=== PATIENT | female | born 1990 | race Two or more races ===

== ENCOUNTER 2023-06-23 07:30 | Inpatient (IN) | payer OTHER ==
[2023-06-30 06:40] VITALS: BMI 28.1
[2023-06-30] MEDS ORDERED: Ondansetron PF 4 MG/2 ML Vial IVP PRN ×2 (06:40→11:50)
[2023-06-30] MEDS ORDERED: Promethazine HCl 25 MG/ML VIAL IM PRN ×2 (06:40→11:50)
[2023-06-30] MEDS ORDERED: Oxytocin 30 units/NS 500 ML 500 ML IV SCH ×3 (06:40)
[2023-06-30] MEDS ORDERED: Lidocaine 1% (PF) 30 ML VIAL SC PRN (06:40)
[2023-06-30] MEDS ORDERED: hydrALAZINE 20 MG/ML VIAL SLOW IVP PRN (06:40)
[2023-06-30] MEDS ORDERED: fentaNYL 50 mcg/mL 1 mL Vial SLOW IVP PRN (06:40)
[2023-06-30] MEDS ORDERED: Misoprostol 100 MCG TAB VAG SCH ×2 (06:40)
[2023-06-30] MEDS ORDERED: HYDROcodone/Acetaminophen 5/325 mg Tablet PO PRN ×2 (06:40)
[2023-06-30] MEDS ORDERED: Lactated Ringer's 1,000 ML IV SCH (06:40)
[2023-06-30] MEDS ORDERED: Ibuprofen 800 MG TAB PO PRN (06:40)
[2023-06-30 06:56] LABS: Hematocrit 36.2 % (34.9-44.5); Hemoglobin 12.4 g/dL (12.0-15.5); Mean Corpuscular HGB CONC 34.3 g/dL (32.0-36.0); Mean Corpuscular Hemoglobin 31.3 pg (27.0-33.0); Mean Corpuscular Volume 91.4 fl (81.6-98.3); Platelet Count 196 10x3/uL (150-450); RBC Distribution Width 13.1 % (11.5-14.5); Red Blood Cell (RBC) Count 3.96 10x6/uL (3.90-5.03); White Blood Cell (WBC) Count 8.1 10x3/uL (3.5-10.5)
[2023-06-30 07:23] LABS: Syphilis Antibody Nonreactive (Nonreactive); Syphilis Antibody Index 0.04 S/CO (<1.00 Non-Reactive)
[2023-06-30 07:24] LABS: HBSAg Index 0.12 S/CO (0-0.99); Hep B Surf Ag - L&D Non-Reactive S/CO (NonReactive)
[2023-06-30] MEDS ORDERED: fentaNYL/Ropivacaine Epidural 100 ML ONE (10:55)
[2023-06-30] MEDS ORDERED: Naloxone HCl 0.4 mg/ml Vial IVP PRN ×2 (11:50)
[2023-06-30] MEDS ORDERED: Lactated Ringer's 500 ML IV PRN (11:50)
[2023-06-30] MEDS ORDERED: ePHEDrine Sulfate 50 MG/10 ML VIAL SLOW IVP PRN (11:50)
[2023-06-30] MEDS ORDERED: Moisturizing Cream (Eucerin) 113 GM JAR TOP PRN (11:50)
[2023-06-30] MEDS ORDERED: Acetaminophen 325 MG TAB PO PRN (11:50)
[2023-06-30] MEDS ORDERED: diphenhydrAMINE 50 MG/ML VIAL IVP PRN (11:50)
[2023-06-30] MEDS ORDERED: fentaNYL 2 mcg/Ropivacaine 0.2% Epidural 100 ML CADD EPIDURAL SCH (12:00)
[2023-06-30] MEDS ORDERED: Communication Order-Pharmacy FS SCH (12:00)
[2023-06-30] MEDS ORDERED: Bupivacaine 0.25% HCL 30 ML VIAL ONE (14:50)
[2023-06-30] MEDS ORDERED: ePHEDrine Sulfate 50 MG/10 ML VIAL ONE (14:50)
[2023-06-30] MEDS ORDERED: Lidocaine 2% MPF 10 ML AMP (For Epidural Use) ONE (14:50)
[2023-06-30] MEDS ORDERED: Bupivacaine PF 0.5% 30 ML VIAL ONE (14:50)
[2023-06-30] MEDS ORDERED: Penicillin G Potassium 5 MILL.UNITS VIAL ONE (23:51)
[2023-07-01] MEDS ORDERED: Penicillin G Potassium 5 MILL.UNITS in Sodium Chloride 0.9% 100 ML IVPB SCH (00:15)
[2023-07-01] MEDS ORDERED: fentaNYL 50 mcg/mL 1 mL Vial ONE ×3 (03:58→06:42)
[2023-07-01] MEDS: Penicillin G 2.5 MILL.units 2.5 MILL.UNITS in Premix Bag 1 BAG IVPB SCH ×2 (04:30→09:50)
[2023-07-01] MEDS ORDERED: CEFAZOLIN 2 GM VIAL ONE (05:13)
[2023-07-01] MEDS ORDERED: Azithromycin 500 MG VIAL ONE (05:15)
[2023-07-01] MEDS ORDERED: Misoprostol 200 MCG TAB ONE (05:32)
[2023-07-01] MEDS ORDERED: Carboprost 250 MCG/ML AMP ONE (05:33)
[2023-07-01] MEDS ORDERED: Oxytocin 10 UNITS/ML VIAL ONE (05:34)
[2023-07-01] MEDS ORDERED: Ondansetron PF 4 MG/2 ML Vial ONE (05:34)
[2023-07-01] MEDS ORDERED: PHENYLEPHRINE-NS 100 MCG/ML 10 ML SYRINGE ONE (05:34)
[2023-07-01] MEDS ORDERED: Methylergonovine 0.2 MG/ML VIAL ONE (05:34)
[2023-07-01] MEDS ORDERED: Morphine PF 10 MG/10 ML VIAL ONE ×2 (05:34→06:15)
[2023-07-01] MEDS ORDERED: Tranexamic Acid 1,000 MG/10 ML VIAL ONE (05:35)
[2023-07-01] MEDS ORDERED: Midazolam HCl 2 mg/2 ml Vial ONE (05:38)
[2023-07-01 06:20] LABS: Actual Bicarbonate (HCO3a) 22.1 mEq/L (22-28); Base Excess (BEa) -3.2 mEq/L (-2.0 to +3.0); CO2 Tension 40.5 mmHg (35.0-45.0); O2 Tension (PaO2), arterial 24.1 mmHg (80.0-100.0); Puncture Site Other Site; RapidComm Collect By OR NURSE; pH, Arterial 7.355 (7.35-7.45)
[2023-07-01 06:22] LABS: ALV-art Gradient 75.005 mmHg (0-20)
[2023-07-01] MEDS ORDERED: Ketorolac Tromethamine 30 MG/ML VIAL ONE (06:42)
[2023-07-01] MEDS ORDERED: fentaNYL 50 mcg/mL 1 mL Vial SLOW IVP PRN (06:45)
[2023-07-01] MEDS ORDERED: Promethazine HCl 25 MG SUPP PR PRN (06:45)
[2023-07-01] MEDS ORDERED: Communication Order-Pharmacy FS SCH (06:45)
[2023-07-01] MEDS ORDERED: Ketorolac Tromethamine 30 MG/ML VIAL IVP SCH (06:45)
[2023-07-01] MEDS ORDERED: diphenhydrAMINE 50 MG/ML VIAL IVP PRN (06:45)
[2023-07-01] MEDS ORDERED: Moisturizing Cream (Eucerin) 113 GM JAR TOP PRN (06:45)
[2023-07-01] MEDS ORDERED: Meperidine HCl/PF 25 MG/ML VIAL SLOW IVP PRN (06:45)
[2023-07-01] MEDS ORDERED: Promethazine HCl 25 MG/ML VIAL IM PRN (06:45)
[2023-07-01] MEDS ORDERED: Naloxone HCl 0.4 mg/ml Vial IVP PRN ×2 (06:45)
[2023-07-01] MEDS ORDERED: Naloxone HCl 0.4 mg/ml Vial IV PRN (06:45)
[2023-07-01] MEDS ORDERED: Ondansetron PF 4 MG/2 ML Vial IVP PRN ×3 (06:45→09:32)
[2023-07-01] MEDS ORDERED: fentaNYL 50 mcg/mL 1 mL Vial SLOW IVP SCH (07:30)
[2023-07-01] MEDS ORDERED: GENTAMICIN SULFATE IVPB SCH (09:00)
[2023-07-01] MEDS ORDERED: SODIUM CHLORIDE 0.9% IVPB SCH (09:00)
[2023-07-01] MEDS ORDERED: Boostrix 0.5 ML (Tdap) VIAL (>/=7 yrs of age) IM ONE (09:32)
[2023-07-01] MEDS ORDERED: diphenhydrAMINE 25 MG CAP PO PRN (09:32)
[2023-07-01] MEDS ORDERED: Simethicone Chewable 80 MG TAB PO PRN (09:32)
[2023-07-01] MEDS ORDERED: Bisacodyl 10 MG SUPP PR PRN (09:32)
[2023-07-01] MEDS ORDERED: Oxytocin 30 units/NS 500 ML 500 ML IV SCH (09:32)
[2023-07-01] MEDS ORDERED: hydrALAZINE 20 MG/ML VIAL SLOW IVP PRN (09:32)
[2023-07-01] MEDS ORDERED: Lanolin Ointment 7 GM TUBE TOP PRN (09:32)
[2023-07-01] MEDS ORDERED: Ferrous Sulfate 325 MG TAB PO SCH (09:45)
[2023-07-01] MEDS ORDERED: Docusate 100 MG CAP PO SCH (09:45)
[2023-07-01] MEDS ORDERED: Prenatal Vitamin 1 TAB PO SCH (09:45)
[2023-07-01] MEDS: GENTAMICIN SULFATE IVPB SCH (10:06)
[2023-07-01] MEDS: SODIUM CHLORIDE 0.9% IVPB SCH (10:06)
[2023-07-01] MEDS: Clindamycin/D5W 900 MG in Premix Bag 1 BAG IVPB SCH ×2 (11:26→18:25)
[2023-07-01] MEDS: Ibuprofen 800 MG TAB PO SCH ×2 (14:21→19:15)
[2023-07-01] MEDS: Ampicillin 2 GM in Sodium Chloride 0.9% 100 ML IVPB SCH ×2 (14:41→20:14)
[2023-07-01] MEDS: Ketorolac Tromethamine 30 MG/ML VIAL IVP PRN ×2 (14:41→21:12)
[2023-07-01] MEDS: Docusate 100 MG CAP PO SCH (21:04)
[2023-07-01] MEDS: Ferrous Sulfate 325 MG TAB PO SCH (21:05)
[2023-07-01] MEDS ORDERED: HYDROcodone/Acetaminophen 5/325 mg Tablet PO PRN (23:00)
[2023-07-02] MEDS: Ketorolac Tromethamine 30 MG/ML VIAL IVP PRN (03:21)
[2023-07-02] MEDS: Ampicillin 2 GM in Sodium Chloride 0.9% 100 ML IVPB SCH ×3 (03:21→15:50)
[2023-07-02] MEDS: Clindamycin/D5W 900 MG in Premix Bag 1 BAG IVPB SCH (04:24)
[2023-07-02] MEDS: Ibuprofen 800 MG TAB PO SCH ×3 (05:43→17:17)
[2023-07-02 05:49] LABS: Hematocrit 25.5 % (34.9-44.5); Hemoglobin 8.5 g/dL (12.0-15.5); Mean Corpuscular HGB CONC 33.3 g/dL (32.0-36.0); Mean Corpuscular Hemoglobin 31.5 pg (27.0-33.0); Mean Corpuscular Volume 94.4 fl (81.6-98.3); Mean Platelet Volume 11.2 fl (7.4-10.4); Platelet Count 153 10x3/uL (150-450); RBC Distribution Width 13.5 % (11.5-14.5); White Blood Cell (WBC) Count 12.9 10x3/uL (3.5-10.5)
[2023-07-02] MEDS: Docusate 100 MG CAP PO SCH ×2 (08:40→19:59)
[2023-07-02] MEDS: Ferrous Sulfate 325 MG TAB PO SCH ×2 (08:40→19:59)
[2023-07-02] MEDS: Prenatal Vitamin 1 TAB PO SCH (08:41)
[2023-07-02] MEDS: SODIUM CHLORIDE 0.9% IVPB SCH (10:00)
[2023-07-02] MEDS: GENTAMICIN SULFATE IVPB SCH (10:00)
[2023-07-02] MEDS ORDERED: Clindamycin/D5W 900 MG in Premix Bag 1 BAG IVPB SCH (13:00)
[2023-07-02] MEDS: HYDROcodone/Acetaminophen 5/325 mg Tablet PO PRN ×2 (15:31→22:11)
[2023-07-03] MEDS: Ibuprofen 800 MG TAB PO SCH ×3 (01:09→16:49)
[2023-07-03] MEDS: HYDROcodone/Acetaminophen 5/325 mg Tablet PO PRN (04:53)
[2023-07-03] MEDS: Docusate 100 MG CAP PO SCH (09:11)
[2023-07-03] MEDS: Prenatal Vitamin 1 TAB PO SCH (09:11)
[2023-07-03] MEDS: Ferrous Sulfate 325 MG TAB PO SCH (09:11)
[2023-07-03 15:49] LABS: Hematocrit 26.3 % (34.9-44.5); Hemoglobin 8.7 g/dL (12.0-15.5)
[2023-07-03 20:07] VITALS: BP 125/85; TEMP 98.3
== END 2023-07-03 20:00 | disposition home or self-care (01) | DRG 788 ==
LOC: CSHLD 06-30 05:27 → CSHPED 07-01 09:00
PROVIDERS: ADMIT Obstetrics & Gynecology; ATTEND Obstetrics & Gynecology
PROC: 10D00Z1 Extraction of Products of Conception, Low, Open Approach (ICD-10-PCS; principal; 2023-07-01)
PROC: 3E0P7VZ Introduction of Hormone into Female Reproductive, Via Natural or Artificial Opening (ICD-10-PCS; 2023-07-01)
PROC: 3E033XZ Introduction of Vasopressor into Peripheral Vein, Percutaneous Approach (ICD-10-PCS; 2023-07-01)
DX: O24.420 Gestational diabetes mellitus in childbirth, diet controlled (principal); Z37.0 Single live birth; O34.13 Maternal care for benign tumor of corpus uteri, third trimester; O76 Abnormality in fetal heart rate and rhythm complicating labor and delivery; Z78.9 Other specified health status; Z3A.40 40 weeks gestation of pregnancy
CPT/HCPCS: 36415; 51702; 82805; 85014; 85018; 85027; 86780; 86850; 86900; 86901; 87340; J0290; J1580; J1885; J2250; J2274; J2405; J2540; J2590; J3010; J3490; S0020